=== PATIENT | female | born 1990 | race Caucasian/White ===

== ENCOUNTER 2023-11-01 16:32 | Observation (INO) | payer BC ==
[2023-11-01] MEDS ORDERED: fentaNYL 50 mcg/mL 1 mL Vial ONE ×2 (16:46→23:14)
[2023-11-01] MEDS ORDERED: Ondansetron PF 4 MG/2 ML Vial ONE ×2 (16:46→23:14)
[2023-11-01] MEDS ORDERED: Dexamethasone 10 MG/ML VIAL ONE (17:06)
[2023-11-01 17:12] LABS: #Eosinphils 0.3 thou/uL (0.0-0.7); #Neutrophils 11.7 thou/uL (1.40-6.50); %Basophils 0.3 % (0.0-1.0); %Eosinophils 2.1 % (0.0-10.0); %Lymphocytes 5.8 % (21.0-51.0); %Monocytes 6.9 % (0.0-10.0); %Neutrophils 84.5 % (42.0-75.0); Hematocrit 55.4 % (36.0-47.0); Hemoglobin 18.9 g/dL (12.0-16.0); Mean Corpuscular HGB CONC 34.1 g/dL (32.0-36.0); Mean Corpuscular Hemoglobin 30.1 pg (27.0-31.0); Mean Corpuscular Volume 88.2 fl (78.0-98.0); Mean Platelet Volume 10.9 fL (7.4-10.4); Platelet Count 399 10x3/uL (130-400); RBC Distribution Width 12.4 % (11.5-14.5); Red Blood Cell (RBC) Count 6.28 mill/uL (4.20-5.40); White Blood Cell (WBC) Count 13.9 10x3/uL (4.8-10.8)
[2023-11-01 17:14] LABS: BHCG - Serum Negative (NEGATIVE); Pregs Control Background? CLEAR/WHITE (CLR/WHITE); Pregs Control Bar Appear? YES (CONTROL BAR)
[2023-11-01 17:23] LABS: Troponin I Less than 0.010 ng/mL (< 0.028)
[2023-11-01 17:25] LABS: ALT (SGPT) 22 U/L (8-55); AST (SGOT) 26 U/L (5-34); Acetaminophen Less than 10 mcg/mL (10.0-30.0); Albumin 5.9 g/dL (3.5-5.0); Alcohol Less than 10.0 mg/dL (Less than 10); Alkaline Phosphatase 119 U/L (40-110); Anion Gap 22 mmol/L (10-20); BUN (Urea Nitrogen) 20 mg/dL (7.0-18.7); Bilirubin, Total 1.1 mg/dL (0.2-1.2); Calc. Creatinine Clearance 0 mL/min (70-130); Calcium 11.5 mg/dL (7.8-10.44); Carbon Dioxide 20 mmol/L (22-29); Chloride 95 mmol/L (98-107); Estimated GFR 35; Globulin 5.3 g/dL (2.4-3.5); Glucose 127 mg/dL (70-105); Lipase 32 U/L (8-78); Magnesium 1.8 mg/dL (1.6-2.6); Phosphorus 3.4 mg/dL (2.3-4.7); Potassium 4.1 mmol/L (3.5-5.1); Protein, Total 11.2 g/dL (6.0-8.3); Salicylate Less than 8.0 mg/dL (15.0-30.0); Sodium 133 mmol/L (136-145)
[2023-11-01 17:59] LABS: SARS-CoV-2 NAA Rapid Test Not Detected (NotDetected)
[2023-11-01 19:33] LABS: Amphetamine Not Detected (NotDetected); Bacteria/HPF 2+ HPF (None Seen); Barbiturates Screen Not Detected (NotDetected); Benzodiazepine Screen Not Detected (NotDetected); Bilirubin Negative (Negative); Blood, Urine Negative (Negative); CAUTI Indications for Culture Fever or rigors; Clarity Turbid (Clear); Cocaine Metabolite Screen Not Detected (NotDetected); Glucose, Urine (Dipstick) Normal (Negative); Ketone, Urine 10 mg/dL (Negative); Leukocyte 25 Leu/uL (Negative); Methadone Not Detected (NotDetected); Methamphetamine Not Detected (NotDetected); Nitrite Negative (Negative); Opiate Screen Not Detected (NotDetected); Oxycodone Screen Not Detected (NotDetected); Phencyclidine (PCP) Not Detected (NotDetected); Protein, Urine (Dipstick) 30 mg/dL (Neg-Trace); RBC/HPF 0-3 HPF (0-3); Specific Gravity, Urine 1.027 (1.002-1.036); THC/Cannabinoid Screen Not Detected (NotDetected); Tricyclic Screen Not Detected (NotDetected); Urobilinogen Normal mg/dL (Less than 2); pH, Urine 5.5 (5.0-9.0)
[2023-11-01 19:34] LABS: Urine Culture Reflex No No
[2023-11-01] MEDS ORDERED: Acetaminophen 325 MG TAB PO PRN ×2 (20:18→20:29)
[2023-11-01] MEDS ORDERED: Ondansetron ODT 4 MG TAB SL PRN (20:30)
[2023-11-01] MEDS ORDERED: Ondansetron PF 4 MG/2 ML Vial IVP PRN ×3 (20:30→23:00)
[2023-11-01 21:37] VITALS: BMI 21.4
[2023-11-01] MEDS ORDERED: fentaNYL 50 mcg/mL 1 mL Vial SLOW IVP SCH (23:00)
[2023-11-02] MEDS: Sodium Chloride 0.9% 1,000 ML IV SCH ×3 (03:59→10:28)
[2023-11-02] MEDS ORDERED: fentaNYL 50 mcg/mL 1 mL Vial ONE (04:10)
[2023-11-02] MEDS ORDERED: fentaNYL 50 mcg/mL 1 mL Vial SLOW IVP SCH (04:15)
[2023-11-02 09:44] VITALS: TEMP 98.2
[2023-11-02 09:48] VITALS: BP 103/49
[2023-11-02] MEDS ORDERED: Loperamide HCl 2 MG CAP PO PRN (10:38)
[2023-11-02] MEDS ORDERED: Loperamide HCl 2 MG CAP PO SCH (10:45)
[2023-11-02] MEDS ORDERED: Loperamide HCl 2 MG CAP ONE (11:59)
[2023-11-02 12:33] LABS: ALT (SGPT) 10 U/L (8-55); AST (SGOT) 16 U/L (5-34); Albumin 3.6 g/dL (3.5-5.0); Alkaline Phosphatase 66 U/L (40-110); Anion Gap 13 mmol/L (10-20); BUN (Urea Nitrogen) 9 mg/dL (7.0-18.7); Bilirubin, Total 0.4 mg/dL (0.2-1.2); Calc. Creatinine Clearance 98 mL/min (70-130); Calcium 8.1 mg/dL (7.8-10.44); Carbon Dioxide 20 mmol/L (22-29); Chloride 107 mmol/L (98-107); Estimated GFR 112; Globulin 2.9 g/dL (2.4-3.5); Glucose 90 mg/dL (70-105); Magnesium 1.8 mg/dL (1.6-2.6); Potassium 3.5 mmol/L (3.5-5.1); Protein, Total 6.5 g/dL (6.0-8.3); Sodium 136 mmol/L (136-145)
[2023-11-03 18:11] LABS: Campy jejuni + coli by PCR Negative (Negative); STEC Shiga Toxin 1+2 Negative (Negative); Salmonella spp. by PCR Negative (Negative); Shigella spp + EIEC by PCR Negative (Negative)
== END 2023-11-02 13:48 | disposition home or self-care (01) ==
LOC: ERS 16:32 → ERHOLD 20:16
PROVIDERS: ADMIT Internal Medicine; ATTEND Internal Medicine
DX: E86.0 Dehydration (principal); K50.90 Crohn's disease, unspecified, without complications; E83.52 Hypercalcemia; Z98.890 Other specified postprocedural states; Z88.5 Allergy status to narcotic agent; Z88.1 Allergy status to other antibiotic agents; Z91.048 Other nonmedicinal substance allergy status; Z88.4 Allergy status to anesthetic agent; Z90.49 Acquired absence of other specified parts of digestive tract
CPT/HCPCS: 71045; 80053; 80306; 80307; 81001; 83605; 83690; 83735; 84100; 84443; 84484; 84703; 85025; 86403; 87040; 87324; 87449; 87505; 87804; 93005; 96376; G0378; J1100; J2405; J3010; J7050; U0002

== ENCOUNTER 2025-08-30 17:23 | Observation (INO) | payer BC ==
[2025-08-30] MEDS ORDERED: Droperidol 5 MG/2 ML VIAL ONE (18:20)
[2025-08-30 18:51] LABS: Hematocrit 53.4 % (36.0-47.0); Hemoglobin 17.4 g/dL (12.0-16.0); Mean Corpuscular Hemoglobin 28.6 pg (27.0-31.0); Mean Corpuscular Volume 87.8 fL (78.0-98.0); Platelet Count 429 10x3/uL (130-400); Red Blood Cell (RBC) Count 6.08 mill/uL (4.20-5.40); White Blood Cell (WBC) Count 26.19 10x3/uL (4.8-10.8)
[2025-08-30 19:02] LABS: BHCG - Serum Negative (NEGATIVE); Pregs Control Background? CLEAR/WHITE (CLR/WHITE); Pregs Control Bar Appear? YES (CONTROL BAR)
[2025-08-30 19:03] LABS: ALT (SGPT) 21 U/L (Less than 34); AST (SGOT) 28 U/L (11-34); Albumin 4.8 g/dL (3.1-4.5); Alkaline Phosphatase 89 U/L (40-110); Anion Gap 19 mmol/L (10-20); BUN (Urea Nitrogen) 19 mg/dL (7.0-18.7); Bilirubin, Total 1.5 mg/dL (0.3-1.2); Calc. Creatinine Clearance 0 mL/min (70-130); Calcium 10.6 mg/dL (7.8-10.44); Carbon Dioxide 20 mmol/L (22-29); Chloride 96 mmol/L (98-107); Globulin 4.7 g/dL (2.4-3.5); Glucose 127 mg/dL (70-105); Lipase 29 U/L (8-78); Magnesium 1.6 mg/dL (1.6-2.6); Potassium 3.9 mmol/L (3.5-5.1); Sodium 131 mmol/L (136-145)
[2025-08-30 19:10] LABS: INR-International Normal Ratio 0.9; Prothrombin Time 12.4 sec (12.0-14.7)
[2025-08-30 19:11] LABS: PTT 26.2 sec (22.9-36.1)
[2025-08-30 19:28] LABS: Platelet Adequacy Comment Platelets Normal; RBC Morphology Within Normal Limits
[2025-08-30] MEDS ORDERED: Acetaminophen 325 MG TAB PO PRN (21:00)
[2025-08-30] MEDS ORDERED: Ondansetron PF 4 MG/2 ML Vial IVP PRN (21:00)
[2025-08-31 06:09] LABS: #Basophils Less than 0.03 10x3/uL (0.0-0.2); #Eosinophils 0.20 10x3/uL (0.0-0.7); #Monocytes 0.60 10x3/uL (0.11-0.59); #Neutrophils 9.47 10x3/uL (1.40-6.50); %Basophils 0.2 % (0.0-1.0); %Eosinophils 1.8 % (0.0-10.0); %Lymphocytes 9.5 % (21.0-51.0); %Monocytes 5.3 % (0.0-10.0); %Neutrophils 82.8 % (42.0-75.0); Hematocrit 35.8 % (36.0-47.0); Hemoglobin 11.8 g/dL (12.0-16.0); Mean Corpuscular Hemoglobin 29.6 pg (27.0-31.0); Mean Corpuscular Volume 89.9 fL (78.0-98.0); Platelet Count 247 10x3/uL (130-400); Red Blood Cell (RBC) Count 3.98 mill/uL (4.20-5.40); White Blood Cell (WBC) Count 11.42 10x3/uL (4.8-10.8)
[2025-08-31 06:10] LABS: Anion Gap 14 mmol/L (10-20); BUN (Urea Nitrogen) 12 mg/dL (7.0-18.7); Calc. Creatinine Clearance 0 mL/min (70-130); Calcium 7.5 mg/dL (7.8-10.44); Carbon Dioxide 19 mmol/L (22-29); Chloride 109 mmol/L (98-107); Glucose 95 mg/dL (70-105); Potassium 3.7 mmol/L (3.5-5.1); Sodium 138 mmol/L (136-145)
[2025-08-31] MEDS: Enoxaparin 40 MG (0.4 mL) SYRINGE SC SCH (08:18)
[2025-08-31 08:19] LABS: Hematocrit 36.7 % (36.0-47.0); Hemoglobin 12.2 g/dL (12.0-16.0)
[2025-08-31 08:33] VITALS: BMI 20.9
[2025-08-31] MEDS: CALCIUM GLUC 1 GM/NS 50 ML 1 GM in Premix 1 BAG IVPB SCH (13:21)
[2025-08-31 14:25] VITALS: BP 91/54; TEMP 98.4
== END 2025-08-31 15:16 | disposition home or self-care (01) ==
LOC: ERS 17:23 → T4-A 20:37
PROVIDERS: ADMIT Internal Medicine; ATTEND Internal Medicine
DX: A41.9 Sepsis, unspecified organism (principal); R65.20 Severe sepsis without septic shock; K52.9 Noninfective gastroenteritis and colitis, unspecified; E86.0 Dehydration; Z90.49 Acquired absence of other specified parts of digestive tract; Z88.1 Allergy status to other antibiotic agents; Z88.5 Allergy status to narcotic agent; Z88.8 Allergy status to other drugs, medicaments and biological substances
CPT/HCPCS: 80048; 80053; 83605; 83690; 83735; 84703; 85025; 85610; 85730; 87040; 93005; 96365; 96375; 96376; G0378; J0613; J1790; J2543; J7030